=== PATIENT | female | born 1990 | race Caucasian/White ===

== ENCOUNTER 2017-07-16 21:47 | Emergency (ER) | payer OTHER ==
[~2017-07-16] VITALS: Ht 175.3 cm; Wt 80.2 kg
[~2017-07-16 21:47] MED LIST: BUSPAR7.5 MG PO; FLEXERIL10 MG PO; IBUPROFEN800 MG PO; MACROBID100 MG PO; METRONIDAZOLE500 MG PO; MOTRIN800 MG PO; NOHOMEMEDS; PRENATAL1 EACH PO; TORADOL10 MG PO; ZOFRAN4 MG PO
[2017-07-16 23:51] LABS: AMPHETAMINE NEGATIVE (500 ng/mL); BARBITURATES NEGATIVE (200 ng/mL); BENZODIAZEPINES PRESUMPTIVE POSITIVE (150 ng/mL); COCAINE NEGATIVE (150 ng/mL); INTERNAL CONTROLS VALID? YES; METHADONE NEGATIVE (200 ng/mL); METHAMPHETAMINE NEGATIVE (500 ng/mL); OPIATES (MORPHINE) NEGATIVE (100 ng/mL); OXYCODONE NEGATIVE (100 ng/mL); PHENCYCLIDINE NEGATIVE (25 ng/mL); PROPOXYPHENE NEGATIVE (300 ng/mL); THC CANNABINOIDS NEGATIVE (50 ng/mL); TRICYCLIC ANTIDEPRESSANTS NEGATIVE (300 ng/mL)
[2017-07-16 23:52] LABS: ADD MEDTOX COMMENT Y
[2017-07-17 00:16] LABS: HEMATOCRIT 44.1 % (36.0-46.0); MCH 30.9 PG (29.0-34.0); MCHC 33.8 G/DL (30.0-36.0); MCV 91.5 FL (83-99); MEAN PLAT.VOLUME 9.8 uM^3 (9.5-12.4); PLATELET COUNT 278 K/uL (156-360); RBC DIS.WIDTH-CV 11.8 % (11.8-14.6); RBC DIS.WIDTH-SD 39.8 % (39-53); RED BLOOD COUNT 4.82 M/uL (3.80-5.20); WHITE BLOOD COUNT 9.5 K/uL (4.1-10.2)
[2017-07-17 00:30] LABS: CHLORIDE 108 mEq/L (99-109); POTASSIUM 3.4 mEq/L (3.7-5.4); SODIUM 140 mEq/L (136-147)
[2017-07-17 00:32] LABS: GLUCOSE 80 mg/dL (70-99)
[2017-07-17 00:33] LABS: ANION GAP 11 MEQ/L (2-14)
[2017-07-17 00:35] LABS: SERUM ETHYL ALCOHOL < 10 mg/dL
[2017-07-17 00:36] LABS: GFR ESTIMATE (CALCULATED) > 59 mL/min/
[2017-07-17 00:37] LABS: UREA NITROGEN (BUN) 12 mg/dL (9-23)
[2017-07-17 00:42] LABS: QUANTITATIVE HCG < 4.0 MIU/ML
[2017-07-17 01:18] LABS: BENZODIAZEPINES, URINE SCREEN POSITIVE (200 ng/mL)
[2017-07-17 02:45] VITALS: BP 109/75
== END 2017-07-17 03:18 | disposition home or self-care (01) ==
LOC: EME 21:47
DX: F32.9 Major depressive disorder, single episode, unspecified (principal); F17.200 Nicotine dependence, unspecified, uncomplicated
CPT/HCPCS: 80048; 84702; 84999; 85027; 90839; 99281; 99285; G0480